=== PATIENT | female | born 1975 | race Caucasian/White ===

== ENCOUNTER 2024-06-26 17:54 | Inpatient (IN) | payer OTHER, MEDICAID ==
[~2024-06-26] VITALS: Ht 162.6 cm; Wt 89.9 kg
--- NOTE | 2024-06-26 18:05 | ECG ---
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
--- NOTE | 2024-06-26 18:43 | ED.PDOC ---
History of Present Illness HPI Comments 49-year-old female who comes in with chief complaint of palpitations. The patient states that she was at home and approximately 30 minutes prior to arrival the patient was checked her heart rate and it was beating somewhat rapidly. The patient then noticed that her walk said that her heart rate was around 180. She does have a history of SVT with previous ablation. The patient states that she is not having any chest pain or shortness for breath. There has been no vomiting or diarrhea. For the paramedics arrived on scene, the patient had an EKG which showed sinus tachycardia at a rate of 130 with PACs. The patient took some Cardizem prior to arrival to the emergency department's. She states that she takes that once a day. She also states that it has not been working over the past several days. EN route, the patient had an oxygen saturation of 96% on room air with a normal blood pressure. Chief Complaint: Palpitations Time Seen by MD: 17:56 Primary Care Provider: DELICIA Brwone Notes: Nurses Notes, Medications, Allergies Allergies: Coded Allergies: NO KNOWN ALLERGIES (Unverified , 06/26/24) Information Source: Patient, Relative, Emergency Med Personnel Mode of Arrival: EMS Severity: Moderate Duration: Since onset Prehospital treatment: Ingredient Handler, IVF Associated signs and symptoms Palpitations Past Medical History Past Medical History (Other): Previous history of SVT with PACs and PVCs Surgical History (Other): Previous ablation PUBLISHING DIRECTOR History: No Pertinent PUBLISHING DIRECTOR History Family History Family History: No family hx of Cancer, No family hx of DM, No family hx of Heart kashmir, No family hx of HTN Social History Smoker: Non-Smoker Alcohol: Occasionally Drugs: Denies Drug Use Lives In: Home Constitutional: denies: chills, diaphoresis, fatigue, fever, malaise, sweats, weakness, others EENTM: denies: blurred vision, double vision, ear bleeding, ear discharge, ear drainage, ear pain, ear ringing, eye pain, eye redness, hearing loss, mouth pain, mouth swelling, nasal discharge, nose bleeding, nose congestion, nose pain, photophobia, tearing, throat pain, throat swelling, voice changes, others Respiratory: reports: shortness of breath; denies: cough, hemoptysis, orthopnea, SOB at rest, SOB with excertion, stridor, wheezing, others Cardiovascular: reports: palpitations; denies: chest pain, dizzy spells, diaphoresis, Dyspnea on exertion, edema, irregular heart beat, left arm pain, lightheadedness, PND, syncope, others Gastrointestinal: denies: abdomen distended, abdominal pain, blood streaked bowels, constipated, diarrhea, dysphagia, difficulty swallowing, hematemesis, melena, nausea, poor appetite, poor fluid intake, rectal bleeding, rectal pain, vomiting, others Genitourinary: denies: abnormal vagina bleeding, burning, dyspareunia, dysuria, flank pain, frequency, hematuria, incontinence, pain, , vagina discharge, urgency, others Neurological: denies: dizziness, fainting, headache, left sided numbness, left sided weakness, numbness, paresthesia, pre-existing deficit, right sided numbness, right sided weakness, seizure, speech problems, tingling, tremors, weakness, others Musculoskeletal: denies: back pain, gout, joint pain, joint swelling, muscle pain, muscle stiffness, neck pain, others Integumetry: denies: bruises, change in color, change in hair/nails, dryness, laceration, lesions, lumps, rash, wounds, others Allergic/Immunocompromised: denies: Difficulty Healing, Frequent Infections, Hives, Itching, others Hematologic/Lymphatic: denies: anemia, blood clots, easy bleeding, easy bruising, swollen glands, others Endocrine: denies: excessive hunger, excessive sweating, excessive thirst, excessive urination, flushing, intolerance to cold, intolerance to heat, unexplained weight gain, unexplained weight loss, others Psychiatric: denies: anxiety, bipolar disorder, depression, hopeless, panic disorder, schizophrenia, sleepless, suicidal, others Physical Exam General Appearance: Moderate Distress HEENT: Normal ENT Inspection, Pharynx Normal, TMs Normal Neck: Full Range of Motion, Non-Tender, Normal, Normal Inspection Respiratory: Chest Non-Tender, Lungs Clear, No Accessory Muscle Use, No Respiratory Distress, Normal Breath Sounds Cardiovascular: No Edema, No JVD, No Murmur, No Gallop, Tachycardia Breast Exam: Deferred Gastrointestinal: No Organomegaly, Non Tender, No Pulsatile Mass, Normal Bowel Sounds, Soft Genitalia: Deferred Pelvic: Deferred Rectal: Deferred Extremities: No calf tenderness, Normal capillary refill, Normal inspection, Normal range of motion, Non-tender, No pedal edema Musculoskeletal : Apperance: Normal Neurologic: Alert, 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 Was a procedure done?: No EKG EKG : Pulse Rate (adult): 112 [place]: Normal Cardiac Rhythm: ST Block: None ST: Nonsp Differential Dx Considerations may include: Dehydration, generalized weakness, electrolyte imbalance X-Ray, Labs, Meds, VS Vital Signs Date Time Temp Pulse Resp B/P (MAP) Pulse Ox O2 Delivery O2 Flow Rate FiO2 06/26/24 20:00 77 12 97/70 (79) 96 06/26/24 20:00 69 06/26/24 19:28 97.6 75 17 121/63 (82) 100 97.6 06/26/24 19:28 76 12 100 Room Air* 0 21 06/26/24 19:13 82 06/26/24 18:57 90 15 99 Room Air* 0 21 06/26/24 18:56 98.2 90 15 115/69 (84) 99 98.2 06/26/24 18:10 99.7 106 16 136/95 (109) 98 99.7 06/26/24 18:04 96 Lab Test 06/26/24 19:55 06/26/24 19:05 Range/Units Troponin I High Sensitivity 10 9 </=34 ng/L White Blood Count 8.3 4.4-10.8 10^3/uL Red Blood Count 4.86 4.0-5.20 10^6/uL Hemoglobin 14.1 12.2-16.2 g/dL Hematocrit 42.2 36.0-46.0 % Mean Corpuscular Volume 86.8 80.0-100.0 fL Mean Corpuscular Hemoglobin 29.1 28.0-32.0 pg Mean Corpuscular Hemoglobin Concent 33.5 32.0-36.0 g/dL Red Cell Distribution Width 14.1 11.8-14.3 % Platelet Count 273 140-450 10^3/uL Mean Platelet Volume 7.0 6.9-10.8 fL Neutrophils (%) (Auto) 74.5 37.0-80.0 % Lymphocytes (%) (Auto) 16.7 10.0-50.0 % Monocytes (%) (Auto) 7.2 0.0-12.0 % Eosinophils (%) (Auto) 1.1 0.0-7.0 % Basophils (%) (Auto) 0.5 0.0-2.0 % Neutrophils # (Auto) 6.2 1.6-8.6 10 ^3/uL Lymphocytes # (Auto) 1.4 0.4-5.4 10 ^3/uL Monocytes # (Auto) 0.6 0-1.3 10 ^3/uL Eosinophils # (Auto) 0.1 0-0.8 10 ^3/uL Basophils # (Auto) 0 0-0.2 10 ^3/uL Nucleated Red Blood Cells 0.0 % D-Dimer, Quantitative 0.31 0.0-0.49 mg/L FEU Sodium Level 141 136-145 mmol/L Potassium Level 3.8 3.5-5.1 mmol/L Chloride Level 106 98-107 mmol/L Carbon Dioxide Level 25 20-31 mmol/L Anion Gap 10 5-15 Blood Urea Nitrogen 17 9-23 mg/dL Creatinine 0.99 0.550-1.02 mg/dL Glomerular Filtration Rate Calc 70 >90 mL/min BUN/Creatinine Ratio 17.2 10.0-20.0 Serum Glucose 105 74-106 mg/dL Calcium Level 10.4 8.7-10.4 mg/dL Magnesium Level 2.0 1.6-2.6 mg/dL CHEST RADIOGRAPH IMPRESSION: No evidence of acute disease. The patient's CBC and chemistry panel is within normal limits The patient's troponin level x2 is negative The D-dimer is negative At this time, the patient's heart rate has come down in the 70s to 80s There is a concern that the patient has been having episodes of tachycardia despite being on Cardizem and the previous ablation We did contact [facility] and they are going to have the patient transferred to their facility. The patient is authorization #[id number] We are discussing the case with the patient's family as well as the patient Images Reviewed?: Images reviewed and evaluated by me Time of 1ST Reevaluation: 21:21 Reevaluation 1ST: Unchanged Patient Education/Counseling: Diagnosis, Treatment, Prognosis Family Education/Counseling: No Family Present Departure 1 Departure Time of Disposition: 21:26 Impression: Primary Impression: Tachyarrhythmia Disposition: 51 HOSPICE/MEDICAL FACILITY Condition: Fair Critical Care Note Critical Care Time?: Yes (35 min-critical care time only) Stability Stability form required: Yes Stable for transfer: Intended for transfer (Health plan request transfer), To designated facility Heart Score Heart Score: Heart Score Response (Comments) Value History Moderate Suspicious 1 EKG Normal 0 Age 45-64 1 Risk Factors 1 or 2 risk factors 1 Troponin Normal limit 0 Total 3 I personally scribed for INDU ADAIR MD ([email or web address]) on 06/26/24 at 19:27. Electronically submitted by Yelitza Guillaume ([facility]). INDU ADAIR MD Jun 26, 2024 18:43
--- NOTE | 2024-06-26 18:44 | DVH ---
CHEST RADIOGRAPH Indication: Palpitations Technique: Frontal and lateral view of the chest was obtained Comparison: None FINDINGS: Lines and Tubes: None Lungs: Clear Pleura: No effusion. No pneumothorax. Cardiomediastinal contours: Unremarkable Bones: Unremarkable IMPRESSION: No evidence of acute disease.
[2024-06-26 18:57] VITALS: PULSE 90; RESP 15; O2SAT 99
[2024-06-26 19:18] LABS: Basophils # (auto) 0 10 ^3/uL (0-0.2); Basophils % (auto) 0.5 % (0.0-2.0); Eosinophils # (auto) 0.1 10 ^3/uL (0-0.8); Eosinophils % (auto) 1.1 % (0.0-7.0); Hematocrit 42.2 % (36.0-46.0); Hemoglobin 14.1 g/dL (12.2-16.2); Lymphocytes # (auto) 1.4 10 ^3/uL (0.4-5.4); Lymphocytes % (auto) 16.7 % (10.0-50.0); Mean Corpuscular Hemoglobin 29.1 pg (28.0-32.0); Mean Corpuscular Hgb Conc. 33.5 g/dL (32.0-36.0); Mean Corpuscular Volume 86.8 fL (80.0-100.0); Monocytes # (auto) 0.6 10 ^3/uL (0-1.3); Monocytes % (auto) 7.2 % (0.0-12.0); Neutrophils # (auto) 6.2 10 ^3/uL (1.6-8.6); Neutrophils % (auto) 74.5 % (37.0-80.0); Platelet Count (auto) 273 10^3/uL (140-450); Red Blood Cells 4.86 10^6/uL (4.0-5.20); Red Cell Distribution Width 14.1 % (11.8-14.3); White Blood Cell 8.3 10^3/uL (4.4-10.8)
[2024-06-26 19:28] VITALS: PULSE 76; RESP 12; O2SAT 100
[2024-06-26 19:30] LABS: Chloride 106 mmol/L (98-107); Potassium 3.8 mmol/L (3.5-5.1); Sodium 141 mmol/L (136-145)
[2024-06-26 19:31] LABS: Anion Gap 10 (5-15); Carbon Dioxide 25 mmol/L (20-31)
[2024-06-26 19:36] LABS: BUN/Creatinine Ratio 17.2 (10.0-20.0); Blood Urea Nitrogen 17 mg/dL (9-23); Glucose 105 mg/dL (74-106)
[2024-06-26 19:42] LABS: Calcium 10.4 mg/dL (8.7-10.4)
--- NOTE | 2024-06-26 19:50 | ECG ---
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
[2024-06-27] VITALS (8 sets, daily range): BP systolic 93–115; BP diastolic 42–69; PULSE 61–76; RESP 12–18; TEMP 97.6–98.2; O2SAT 96–100
--- NOTE | 2024-06-27 05:59 | ED.PDOC ---
Departure 1 Departure Time of Disposition: 05:58 ([place] authorized the patient to be admitted here.Patient's bradycardic and hypotensive. We will give patient is fluids and admit for cardiology evaluation.) Impression: Primary Impression: Tachyarrhythmia Additional Impressions: Bradycardia Generalized weakness Disposition: ADMITTED INPATIENT Admit to: Tele Condition: Guarded SHERIN RENDON MD Jun 27, 2024 05:59
[2024-06-27] MEDS: SODIUM CHLORIDE 0.9% 1,000 ML IV ONE (06:13)
[2024-06-27] MEDS ORDERED: NITROGLYCERIN 0.4 MG SL TAB SL PRN (07:30)
[2024-06-27] MEDS ORDERED: HYDROcodone-ACET 5/325MG TAB PO PRN (07:30)
[2024-06-27] MEDS ORDERED: MORPHINE SULFATE INJ 2 MG/ml SYRG IV PRN (07:30)
[2024-06-27] MEDS ORDERED: ONDANSETRON HCL 4 MG/2 ML VIAL IV PRN (07:30)
[2024-06-27] MEDS ORDERED: DOCUSATE SOD 100 MG CAP PO PRN (07:30)
[2024-06-27] MEDS ORDERED: SODIUM CHLORIDE 0.9% 1,000 ML IV ONE (07:45)
--- NOTE | 2024-06-27 07:54 | DVHHP2 ---
History of Present Illness Reason for Visit: Palpitations History of Present Illness Cathy Barraza, is a 49-year-old female, with past medical history of SVT and cardiac ablation, who came in due to palpitations. Patient states that sense having her ablation her SVT has improved, but she now has frequent PVCs and PACs. She takes Diltiazem at home for this. She states that she will have occasional short runs of SVT or frequent PVCs that she can wait out, rest, put ice on her neck or chest to help stop it. Yesterday, while on a walk with her daughter, she started feeling the palpitations every time she would began to jog. When she would stop her heart rate would improve. On her third attempt her heart rate went to the 180s and did not improve with rest. Cardiovascular: Other (SVT, PVC, Ablation) Past Surgical History: Cholecystectomy, Other (left salpingectomy), Tubal Ligation Smoke: No ALCOHOL: occassional Drugs: None Lives: with Family Domestic Violence: Neg Review of Systems Constitutional: No: Fever, Chills, Sweats, Weakness, Malaise, Other Eyes: No: Pain, Vision change, Conjunctivae inflammation, Eyelid inflammation, Other, Redness ENT: No: Ear pain, Ear discharge, Nose pain, Nose discharge, Nose congestion, Mouth pain, Mouth swelling, Throat pain, Throat swelling, Other Respiratory: SOB with excertion; No: Cough, Dry, Shortness of breath, Wheezing, Hemoptysis, Pleuritic Pain, Sputum, Wheezing, Other Cardiovascular: Chest Pain (pressure), Palpitations; No: Orthopnea, Paroxysmal Noc. Dyspnea, Edema, Lt Headedness, Other Gastrointestinal: No: Nausea, Vomiting, Abdominal Pain, Diarrhea, Constipation, Melena, Hematochezia, Other Genitourinary: No Dysuria, No Frequency, No Incontinence, No Hematuria, No Retention, No Other Musculoskeletal: No: other, neck pain, shoulder pain, arm pain, back pain, hand pain, leg pain, foot pain Skin: No: Rash, Lesions, Jaundice, Bruising, Other Neurological: No: Weakness, Numbness, Incoordination, Change in speech, Confusion, Seizures, Other Allergies: Coded Allergies: NO KNOWN ALLERGIES (Unverified , 06/26/24) Medications Current Medications Medications Dose Ordered Sig/Fercho Route Start Time Stop Time Status Last Admin Dose Admin Sodium Chloride 10 ml Q8HR IV 06/27/24 14:00 UNV Acetaminophen/ Hydrocodone Bitart 1 tab Q4HP PRN PO 06/27/24 07:30 UNV Ondansetron HCl 4 mg Q4HP PRN IV 06/27/24 07:30 UNV Docusate Sodium 100 mg BIDPRN PRN PO 06/27/24 07:30 UNV Acetaminophen 650 mg Q6HP PRN PO 06/27/24 07:30 UNV Nitroglycerin 0.4 mg Q5MINP PRN SL 06/27/24 07:30 UNV Morphine Sulfate 2 mg Q30M PRN IV 06/27/24 07:30 UNV Exam Vital Signs Vital Signs Date Time Temp Pulse Resp B/P (MAP) Pulse Ox O2 Delivery O2 Flow Rate FiO2 06/27/24 07:39 97.8 61 12 96/66 (76) 100 97.8 06/26/24 19:28 Room Air* 0 21 General Appearance: Alert, Oriented X3, Cooperative, mild distress HEENT: Atraumatic, PERRLA, Mucous membr. moist/pink Respiratory: Clear to auscultation, Normal air movement Cardiovascular: Regular rate, Normal S1, Normal S2, No murmurs Abdominal: Normal bowel sounds, Soft, No tenderness, No hepatospenomegaly Extremities: No clubbing, No cyanosis, No edema, Normal pulses, No tenderness/swelling Skin: No rashes, No breakdown, No significant lesion Neuro: Normal gait, Normal speech, Strength at 5/5 X4 ext, Normal tone Psych/Mental Status: Mental status NL, Mood NL Labs/Xrays Labs Test 06/26/24 19:55 06/26/24 19:05 Range/Units Troponin I High Sensitivity 10 </=34 ng/L White Blood Count 8.3 4.4-10.8 10^3/uL Red Blood Count 4.86 4.0-5.20 10^6/uL Hemoglobin 14.1 12.2-16.2 g/dL Hematocrit 42.2 36.0-46.0 % Mean Corpuscular Volume 86.8 80.0-100.0 fL Mean Corpuscular Hemoglobin 29.1 28.0-32.0 pg Mean Corpuscular Hemoglobin Concent 33.5 32.0-36.0 g/dL Red Cell Distribution Width 14.1 11.8-14.3 % Platelet Count 273 140-450 10^3/uL Mean Platelet Volume 7.0 6.9-10.8 fL Neutrophils (%) (Auto) 74.5 37.0-80.0 % Lymphocytes (%) (Auto) 16.7 10.0-50.0 % Monocytes (%) (Auto) 7.2 0.0-12.0 % Eosinophils (%) (Auto) 1.1 0.0-7.0 % Basophils (%) (Auto) 0.5 0.0-2.0 % Neutrophils # (Auto) 6.2 1.6-8.6 10 ^3/uL Lymphocytes # (Auto) 1.4 0.4-5.4 10 ^3/uL Monocytes # (Auto) 0.6 0-1.3 10 ^3/uL Eosinophils # (Auto) 0.1 0-0.8 10 ^3/uL Basophils # (Auto) 0 0-0.2 10 ^3/uL Nucleated Red Blood Cells 0.0 % D-Dimer, Quantitative 0.31 0.0-0.49 mg/L FEU Sodium Level 141 136-145 mmol/L Potassium Level 3.8 3.5-5.1 mmol/L Chloride Level 106 98-107 mmol/L Carbon Dioxide Level 25 20-31 mmol/L Anion Gap 10 5-15 Blood Urea Nitrogen 17 9-23 mg/dL Creatinine 0.99 0.550-1.02 mg/dL Glomerular Filtration Rate Calc 70 >90 mL/min BUN/Creatinine Ratio 17.2 10.0-20.0 Serum Glucose 105 74-106 mg/dL Calcium Level 10.4 8.7-10.4 mg/dL Magnesium Level 2.0 1.6-2.6 mg/dL CHEST RADIOGRAPH FINDINGS: Lines and Tubes: None Lungs: Clear Pleura: No effusion. No pneumothorax. Cardiomediastinal contours: Unremarkable Bones: Unremarkable IMPRESSION: No evidence of acute disease. 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 DESIGNER Procedure Category Date Status Time Admit ADMIT 06/27/24 Transmitted 07:28 Code Status CODE 06/27/24 Transmitted 07:28 2 Gm Sodium Diet DIET 06/27/24 Transmitted Breakfast Sodium Chloride Lock PHA 06/27/24 Logged (Saline Lock Ns) 14:00 Hydrocodone-Acet PHA 06/27/24 Logged 5/325mg Tab ([place] 07:30 Ondansetron Hcl PHA 06/27/24 Logged (Zofran) 07:30 Docusate Sodium PHA 06/27/24 Logged Capsule (Colace 07:30 Complete Blood Count LAB 06/28/24 Verified 04:00 Comprehensive LAB 06/28/24 Verified Metabolic Panel 04:00 Condition: Serious STONE 06/27/24 In Process 07:28 Acetaminophen Tablet [facility] 06/27/24 Logged (Tylenol Tablet) 07:30 Nitroglycerin [facility] 06/27/24 Logged Sublingual (Ntrostat 07:30 Morphine Sulfate PHA 06/27/24 Logged Injection 07:30 Stat Ekg For Chest [facility] 06/27/24 In Process Pain 07:28 Notify Md Of Changes [facility] 06/27/24 In Process From Base 07:28 Polls Or Surveys Interviewer For [facility] 06/27/24 In Process 24 Hours 07:28 Emergency Dysrhythmia [facility] 06/27/24 In Process Protocol 07:28 Rhythm Strips Once [facility] 06/27/24 In Process Every Shift 07:28 Oxygen By Nasal RT 06/27/24 Transmitted Cannula 07:28 Date of Service: Jun 27, 2024 Billing Provider: JO MEEK Common Visit Codes: [id number] INP/OBS CARE (MOD) JO MEEK Jun 27, 2024 07:54
[2024-06-27] MEDS ORDERED: METOPROLOL TARTRATE 25 MG TAB PO SCH (10:00)
--- NOTE | 2024-06-27 11:53 | DVHINCON2 ---
Date Seen: Jun 27, 2024 Referring Physician ANTONIO Hua Reason for Consultation Palpitations, SVT History of Present Illness This is a pleasant 49-year-old female who presented to the emergency room with a chief complaint of palpitations. The patient reports she was exercising including running when she noted her heart rate to be consistently in the 180s bpm prompting her to call 911 given her history of supraventricular tachycardia. Upon EMS arrival she was found in a sinus tachycardia rhythm with a heart rate in the 130s bpm. The patient reports a history of supraventricular tachycardia undergoing DCCV x 3 with subsequent cardiac ablation at [facility] on 2021. The patient also reports undergoing an event monitor for 30 days approximately 1.5 years ago with findings of PVCs and PACs and no further tachyarrhythmias. States she is on Cardizem LA, unknown dosage, but forgets to take it at times. She stopped following up with cardiology after the latest event monitor results. She has undergone multiple 12 lead electrocardiograms x2 revealing a normal sinus rhythm. Serial troponin levels are negative. Denies the intake of caffeinated or energy drinks. States she is well-hydrated. Denies any other significant medical history. Past Medical History Past medical history reviewed. No other significant than mentioned above. Past Surgical History Cardiac ablation, 2021 Cholecystectomy Left salpingectomy BTL Family History Family history reviewed. Not significant for cardiovascular disease. Social History Denies the use of illicit drugs, alcohol, or tobacco use. Allergies: Coded Allergies: NO KNOWN ALLERGIES (Unverified , 06/26/24) Home Meds Home medications reviewed. Current Medications Current Medications Medications (Trade) Dose Ordered Sig/Fercho Route PRN Reason Start Time Stop Time Status Last Admin Sodium Chloride (Saline Lock Ns) 10 ml Q8HR IV 06/27/24 14:00 Acetaminophen/ Hydrocodone Bitart ([place] 5/325MG Tab) 1 tab Q4HP PRN PO MODERATE PAIN (4-6 PAIN SCALE) 06/27/24 07:30 Ondansetron HCl (Zofran) 4 mg Q4HP PRN IV NAUSEA / VOMITING 06/27/24 07:30 Docusate Sodium (Colace Capsule) 100 mg BIDPRN PRN PO FOR CONSTIPATION 06/27/24 07:30 Acetaminophen (Tylenol Tablet) 650 mg Q6HP PRN PO PAIN SCALE 1-3 OR TEMP>100.4 06/27/24 07:30 Nitroglycerin (Ntrostat Sublingual) 0.4 mg Q5MINP PRN SL FOR CHEST PAIN 06/27/24 07:30 Morphine Sulfate 2 mg Q30M PRN IV FOR CHEST PAIN 06/27/24 07:30 Metoprolol Tartrate (Lopressor Tablet) 12.5 mg BID PO 06/27/24 10:00 Review of Systems Constitutional: No symptom reported Ears, Nose, & Throat: No symptom reported Eyes: No symptom reported Neurological: No symptoms reported Pulmonary/Respiratory: No symptom reported Cardiovascular: Palpitations Gastrointestinal: No symptom reported Genitourinary: No symptom reported Musculoskeletal: No symptom reported Skin: No symptom reported Psychiatric: No symptom reported Endocrine: No symptom reported Hemotologic/Lymphatic: No symptom reported Vital Signs Vital Signs Date Time Temp Pulse Resp B/P (MAP) Pulse Ox O2 Delivery O2 Flow Rate FiO2 06/27/24 08:10 97.6 72 18 104/42 (62) 98 97.6 06/27/24 07:30 Room Air* 0 21 Physical Exam General Appearance: Cooperative. Well developed. Well nourished. In no acute distress Head Exam: Normal inspection Neck Exam: Normal inspection. Non-tender. Normal alignment Pulmonary/Respiratory: Chest non-tender. Clear bilateral breath sounds Cardiovascular/Chest: Regular rate and rhythm. S1, S2. NSR. No murmurs. No JVD. Peripheral Pulses: 2+ Radial (R). 2+ Radial (L). 2+ Pedal (R). 2+ Pedal (L) Abdominal Exam: Normal bowel sounds. Soft. Nontender. No hepatospenomegaly. N o masses Ankle Exam: Negative ankle edema Lower extremities: Negative lower extremity edema Neuro/Mental Status: A&O x4. Coherent Thoughts/Psych: Normal thought pattern. Appropriate mood and affect. Good judgement and insight Appearance: In no acute distress Skin Exam: Normal inspection. Normal color. Warm. Dry Labs/Diagnostic Data Labs Test 06/26/24 19:55 06/26/24 19:05 Range/Units Troponin I High Sensitivity 10 </=34 ng/L White Blood Count 8.3 4.4-10.8 10^3/uL Red Blood Count 4.86 4.0-5.20 10^6/uL Hemoglobin 14.1 12.2-16.2 g/dL Hematocrit 42.2 36.0-46.0 % Mean Corpuscular Volume 86.8 80.0-100.0 fL Mean Corpuscular Hemoglobin 29.1 28.0-32.0 pg Mean Corpuscular Hemoglobin Concent 33.5 32.0-36.0 g/dL Red Cell Distribution Width 14.1 11.8-14.3 % Platelet Count 273 140-450 10^3/uL Mean Platelet Volume 7.0 6.9-10.8 fL Neutrophils (%) (Auto) 74.5 37.0-80.0 % Lymphocytes (%) (Auto) 16.7 10.0-50.0 % Monocytes (%) (Auto) 7.2 0.0-12.0 % Eosinophils (%) (Auto) 1.1 0.0-7.0 % Basophils (%) (Auto) 0.5 0.0-2.0 % Neutrophils # (Auto) 6.2 1.6-8.6 10 ^3/uL Lymphocytes # (Auto) 1.4 0.4-5.4 10 ^3/uL Monocytes # (Auto) 0.6 0-1.3 10 ^3/uL Eosinophils # (Auto) 0.1 0-0.8 10 ^3/uL Basophils # (Auto) 0 0-0.2 10 ^3/uL Nucleated Red Blood Cells 0.0 % D-Dimer, Quantitative 0.31 0.0-0.49 mg/L FEU Sodium Level 141 136-145 mmol/L Potassium Level 3.8 3.5-5.1 mmol/L Chloride Level 106 98-107 mmol/L Carbon Dioxide Level 25 20-31 mmol/L Anion Gap 10 5-15 Blood Urea Nitrogen 17 9-23 mg/dL Creatinine 0.99 0.550-1.02 mg/dL Glomerular Filtration Rate Calc 70 >90 mL/min BUN/Creatinine Ratio 17.2 10.0-20.0 Serum Glucose 105 74-106 mg/dL Calcium Level 10.4 8.7-10.4 mg/dL Magnesium Level 2.0 1.6-2.6 mg/dL Assessment Palpitations rule out tachyarrhythmias Rule out structural heart disease Hx of SVT with DCCV x 3 and subsequent ablation in 2021 Poor medical compliance Plan/Recommendation (Dr. Bustillo) No cardiac arrhythmias have been identified during admission. The patient has been scheduled for a transthoracic echocardiogram to evaluate cardiac function. In the meantime, initiate Cardizem and magnesium therapy and check TSH level. The patient was strongly advised to continue medical compliance with Cardizem at home. She can also benefit from an outpatient event monitor and follow-up with Cardiology. Notify Cardiology in the setting of tachyarrhythmias. In the setting of an unremarkable echocardiogram, there is no further cardiac workup indicated at this time. Thank you for allowing us to participate in this patient's care. Please call if you have any questions or concerns. This medical document was created using an electronic medical record system with voice recognition software and computerized dictation system. Although this document has been carefully reviewed, there might still be some phonetic and typographical errors. Occasional wrong-word or ``sound-alike substitutions may have occurred due to the inherent limitations of voice recognition software. These areas are purely typographical due to imperfections of the software programs and do not reflect any compromise in the patient's medical care. Please read the chart carefully and recognize, using context, where these substitutions have occurred. Plan discussed with: Patient, Other NYHA Physical activity limitations: NA Date of Service: Jun 27, 2024 Billing Provider: MYRON MCCURDY Cardiology Common Codes: [id number] INP/OBS CARE (High) MYRON MCCURDY Jun 27, 2024 11:53
[2024-06-27] MEDS: MAGNESIUM OXIDE 400 MG TAB PO ONE (13:10)
[2024-06-27] MEDS: dilTIAZem 120MG ER CAP PO ONE (13:13)
[2024-06-27] MEDS: SODIUM CHLOR 0.9% PF (SALINE LOCK) 10ML VIAL/SYR IV SCH (19:59)
[2024-06-28 01:00] VITALS: BP 100/63; PULSE 53; RESP 17; TEMP 98; O2SAT 98
[2024-06-28 05:00] VITALS: BP 99/54; PULSE 54; RESP 16; TEMP 97.9; O2SAT 98
[2024-06-28 06:40] LABS: Urine Bacteria None Seen /hpf (None Seen)
[2024-06-28] MEDS: ACETAMINOPHEN 325 MG TAB PO PRN (06:45)
[2024-06-28 06:46] LABS: Basophils # (auto) 0 10 ^3/uL (0-0.2); Basophils % (auto) 0.5 % (0.0-2.0); Eosinophils # (auto) 0.3 10 ^3/uL (0-0.8); Eosinophils % (auto) 4.3 % (0.0-7.0); Hematocrit 42.4 % (36.0-46.0); Hemoglobin 14.2 g/dL (12.2-16.2); Lymphocytes # (auto) 2.1 10 ^3/uL (0.4-5.4); Lymphocytes % (auto) 34.2 % (10.0-50.0); Mean Corpuscular Hemoglobin 29.3 pg (28.0-32.0); Mean Corpuscular Hgb Conc. 33.4 g/dL (32.0-36.0); Mean Corpuscular Volume 87.7 fL (80.0-100.0); Monocytes # (auto) 0.6 10 ^3/uL (0-1.3); Monocytes % (auto) 9.1 % (0.0-12.0); Neutrophils # (auto) 3.2 10 ^3/uL (1.6-8.6); Neutrophils % (auto) 51.9 % (37.0-80.0); Nucleated Red Blood Cells % 0.2 %; Platelet Count (auto) 259 10^3/uL (140-450); Red Blood Cells 4.84 10^6/uL (4.0-5.20); Red Cell Distribution Width 14.2 % (11.8-14.3); White Blood Cell 6.1 10^3/uL (4.4-10.8)
[2024-06-28 07:01] LABS: Alanine Aminotransferase 20 U/L (7-40); Albumin 4.2 g/dL (3.2-4.8); Alkaline Phosphatase 63 U/L (46-116); Anion Gap 10 (5-15); Aspartate Aminotransferase 15 U/L (13-40); BUN/Creatinine Ratio 17.3 (10.0-20.0); Bilirubin, Total 0.5 mg/dL (0.2-1.0); Blood Urea Nitrogen 14 mg/dL (9-23); Calcium 9.5 mg/dL (8.7-10.4); Carbon Dioxide 23 mmol/L (20-31); Chloride 107 mmol/L (98-107); Potassium 4.1 mmol/L (3.5-5.1); Sodium 140 mmol/L (136-145)
[2024-06-28 07:02] LABS: Glucose 115 mg/dL (74-106)
[2024-06-28 07:04] LABS: Urine Blood TRACE /uL (Negative); Urine Clarity Clear (Clear); Urine Color Colorless (Yellow); Urine Protein, UAD Negative (Negative); Urine Specific Gravity 1.006 (1.001-1.035); Urine Squamous Epithelial Cell FEW /hpf (<5); Urine Urobilinogen Normal (Negative); Urine WBC < 1 /HPF (0-5); Urine pH 5.5 (5.0-9.0)
[2024-06-28 08:00] VITALS: PULSE 47
[2024-06-28 08:10] VITALS: PULSE 53; RESP 16; O2SAT 98
[2024-06-28 09:30] VITALS: BP 98/65; PULSE 53; RESP 16; TEMP 97.8; O2SAT 98
[2024-06-28] MEDS: MAGNESIUM OXIDE 400 MG TAB PO SCH (09:47)
[2024-06-28] MEDS: dilTIAZem 120MG ER CAP PO SCH (09:47)
--- NOTE | 2024-06-28 09:48 | DVHPN2 ---
Consult Progress Note Date Seen: Jun 28, 2024 Subjective Review of Systems: CVS:Normal, RESPIRATORY:Normal, NEURO:Normal Objective vital signs Vital Sign Date Time Temp Pulse Resp B/P (MAP) Pulse Ox O2 Delivery O2 Flow Rate FiO2 06/28/24 05:00 97.9 54 16 99/54 (69) 98 97.9 06/27/24 20:00 Room Air* 0 21 Total Intake and Output 06/27/24 06/27/24 06/28/24 15:00 23:00 07:00 Intake Total 1000 ml 200 ml 150 ml Balance 1000 ml 200 ml 150 ml medications Current Medications Medications Dose Ordered Sig/Fercho Route Start Time Stop Time Status Last Admin Dose Admin Sodium Chloride 10 ml Q8HR IV 06/27/24 14:00 06/28/24 06:30 10 ML Acetaminophen/ Hydrocodone Bitart 1 tab Q4HP PRN PO 06/27/24 07:30 Ondansetron HCl 4 mg Q4HP PRN IV 06/27/24 07:30 Docusate Sodium 100 mg BIDPRN PRN PO 06/27/24 07:30 Acetaminophen 650 mg Q6HP PRN PO 06/27/24 07:30 06/28/24 06:45 650 MG Nitroglycerin 0.4 mg Q5MINP PRN SL 06/27/24 07:30 Morphine Sulfate 2 mg Q30M PRN IV 06/27/24 07:30 Diltiazem HCl 120 mg DAILY PO 06/28/24 10:00 Magnesium Oxide 400 mg DAILY PO 06/28/24 10:00 Examination: LUNGS:Normal, CVS:Normal (Sinus bradycardic events on quality assurance monitor final), NEURO:Normal laboratory and microbiology Laboratory Tests 06/28/24 05:31 Test 06/28/24 05:31 Range/Units Serum Glucose 115 H 74-106 mg/dL Problem List/Assessment/Plan Problem List/Assessment/Plan Palpitations rule out tachyarrhythmias Rule out structural heart disease Hx of SVT with DCCV x 3 and subsequent ablation in 2021 Poor medical compliance Plan/Recommendation (Dr. Bustillo) No cardiac arrhythmias have been identified during admission. shelter monitor reviewed revealing sinus bradycardia at rest. Continue Cardizem and magnesium therapy. In the setting of an unremarkable echocardiogram, there is no further cardiac workup indicated at this time. Strongly advised to continue medical compliance with Cardizem at home. She can also benefit from an outpatient event monitor and follow-up with Cardiology. Thank you for allowing us to participate in this patient's care. Please call if you have any questions or concerns. This medical document was created using an electronic medical record system with voice recognition software and computerized dictation system. Although this document has been carefully reviewed, there might still be some phonetic and typographical errors. Occasional wrong-word or ``sound-alike substitutions may have occurred due to the inherent limitations of voice recognition software. These areas are purely typographical due to imperfections of the software programs and do not reflect any compromise in the patient's medical care. Please read the chart carefully and recognize, using context, where these substitutions have occurred. Plan discussed with: Patient, Other Date of Service: Jun 28, 2024 Billing Provider: MYRON MCCURDY Cardiology Common Codes: [id number] INP/OBS CARE(Mod) MYRON MCCURDY Jun 28, 2024 09:48
--- NOTE | 2024-06-28 10:53 | DVHDS2 ---
Discharge Summary Date of Admission Jun 27, 2024 at 07:28 Date of Discharge: Jun 28, 2024 Admitting Diagnosis Tachyarrhythmia Labs/Diagnostic Data: Laboratory Results Test 06/28/24 06:00 06/28/24 05:31 06/27/24 12:36 06/26/24 19:55 Urine Color Colorless (Yellow) Urine Clarity Clear (Clear) Urine pH 5.5 (5.0-9.0) Urine Specific [place] 1.006 (1.001-1.035) Urine Protein Negative (Negative) Urine Ketones Negative (Negative) Urine Blood Trace /uL (Negative) Urine Nitrite Negative (Negative) Urine Bilirubin Negative (Negative) Urine Urobilinogen Normal mg/dL (Negative) Urine Leukocyte Esterase Negative /uL (Negative) Urine RBC <1 /hpf (0 - 4) Urine Microscopic WBC < 1 /HPF (0-5) Urine Squamous Epithelial Cells Few /hpf (<5) Urine Bacteria None seen /hpf (None Seen) Urine Glucose Normal mg/dL (Normal) White Blood Count 6.1 10^3/uL (4.4-10.8) Red Blood Count 4.84 10^6/uL (4.0-5.20) Hemoglobin 14.2 g/dL (12.2-16.2) Hematocrit 42.4 % (36.0-46.0) Mean Corpuscular Volume 87.7 fL (80.0-100.0) Mean Corpuscular Hemoglobin 29.3 pg (28.0-32.0) Mean Corpuscular Hemoglobin Concent 33.4 g/dL (32.0-36.0) Red Cell Distribution Width 14.2 % (11.8-14.3) Platelet Count 259 10^3/uL (140-450) Mean Platelet Volume 7.4 fL (6.9-10.8) Neutrophils (%) (Auto) 51.9 % (37.0-80.0) Lymphocytes (%) (Auto) 34.2 % (10.0-50.0) Monocytes (%) (Auto) 9.1 % (0.0-12.0) Eosinophils (%) (Auto) 4.3 % (0.0-7.0) Basophils (%) (Auto) 0.5 % (0.0-2.0) Neutrophils # (Auto) 3.2 10 ^3/uL (1.6-8.6) Lymphocytes # (Auto) 2.1 10 ^3/uL (0.4-5.4) Monocytes # (Auto) 0.6 10 ^3/uL (0-1.3) Eosinophils # (Auto) 0.3 10 ^3/uL (0-0.8) Basophils # (Auto) 0 10 ^3/uL (0-0.2) Nucleated Red Blood Cells 0.2 % Sodium Level 140 mmol/L (136-145) Potassium Level 4.1 mmol/L (3.5-5.1) Chloride Level 107 mmol/L (98-107) Carbon Dioxide Level 23 mmol/L (20-31) Anion Gap 10 (5-15) Blood Urea Nitrogen 14 mg/dL (9-23) Creatinine 0.81 mg/dL (0.550-1.02) Glomerular Filtration Rate Calc 89 mL/min (>90) BUN/Creatinine Ratio 17.3 (10.0-20.0) Serum Glucose 115 mg/dL (74-106) Calcium Level 9.5 mg/dL (8.7-10.4) Total Bilirubin 0.5 mg/dL (0.2-1.0) Aspartate Amino Transferase (AST) 15 U/L (13-40) Alanine Aminotransferase (ALT) 20 U/L (7-40) Alkaline Phosphatase 63 U/L (46-116) Total Protein 7.0 g/dL (5.7-8.2) Albumin 4.2 g/dL (3.2-4.8) Thyroid Stimulating Hormone (TSH) 0.50 uIU/mL (0.55-4.78) Troponin I High Sensitivity 10 ng/L (</=34) Test 06/26/24 19:05 D-Dimer, Quantitative 0.31 mg/L FEU (0.0-0.49) Magnesium Level 2.0 mg/dL (1.6-2.6) Other Laboratory Tests 06/28/24 05:31 Brief Hx & Hospital Course: History of Present Illness Cathy Barraza, is a 49-year-old female, with past medical history of SVT and cardiac ablation, who came in due to palpitations. Patient states that sense having her ablation her SVT has improved, but she now has frequent PVCs and PACs. She takes Diltiazem at home for this. She states that she will have occasional short runs of SVT or frequent PVCs that she can wait out, rest, put ice on her neck or chest to help stop it. Yesterday, while on a walk with her daughter, she started feeling the palpitations every time she would began to jog. When she would stop her heart rate would improve. On her third attempt her heart rate went to the 180s and did not improve with rest. Course of hospitalization: Further discussion with the patient reveals that she had SVT ablation approximately three years ago. The patient has been recently she was noticing palpitations, for which she was placed on Cardizem XL by her isotope technologist. The patient was states that she does not take this medication consistently, which was more infrequent as of the last 1-2 weeks. August overnight, the patient was noted to have sinus bradycardia without any noted runs of PVCs, PACs, or SVT. Discussion was made with the patient regarding plan of care which includes being discharged home and continue home medications with compliance with her Cardizem. Patient was agreeable this discharge plan. She will follow up with the isotope technologist for further workup. All questions answered. Physical examination General: Alert and Oriented x3. No acute distress. Well-nourished. Obese Eyes: EOMI. Anicteric. HENT: Moist mucous membranes. Lungs: Clear to auscultation bilaterally. No accessory muscle use. Cardiovascular: Regular rate and rhythm. No murmur. No JVD. Abdomen: Soft, non-tender and non-distended. No palpable masses. Extremities: No edema. Non-tender. Skin: No rashes or lesions. Warm. Neurologic: No focal neurological deficits. CN II-XII grossly intact, but not individually tested. Psychiatric: Cooperative. Appropriate mood and affect. Total time spent with patient discussing and formulating plan of care: 35 minutes. This medical document was created using an electronic medical record system with [employer] system. Although this document has been carefully reviewed, there may still be some phonetic and typographical errors. These areas are purely typographical due to imperfections of the software programs, and do not reflect any compromise in the patient's medical care. Consults/Reason for consult Cardiology: Tachyarrhythmia Condition at Discharge: Fair Final Diagnosis/Problems List Paroxysmal SVT Secreted diagnosis: Obesity Discharge Disposition: Home Discharge Instruct/Medications Diet: Regular Activity: No Restrictions, As Tolerated Follow Up/Referral: Follow up with primary isotope technologist once discharge Medications: Continue home medications including Cardizem XL 120 mg p.o. daily 36 Discharge Statement: "Patient was advised to return to the ER or call 911 if any headaches, dizziness, shortness of breath, chest pain, abdominal pain, bleeding, fevers, or worsening of medical condition. Patient was counseled about treatment plan, medications, possible side effects, patientverbalized understanding. All questions were answered to the best of my ability. This discharge took greater then 30 minutes in planning, reviewing documentation, counseling the patient, and discussing with other team members." ASSESSMENT ASSESSMENT Assessment Paroxysmal SVT Date of Service: Jun 28, 2024 Billing Provider: NATALY BRADFORD NP Common Visit Codes: 90772-BID/OBS DISCH DAY >30min NATALY BRADFORD NP Jun 28, 2024 10:53
[2024-06-28 11:04] VITALS: BP 98/65; PULSE 53; RESP 16; TEMP 97.8; O2SAT 98
--- NOTE | 2024-06-28 13:51 | DVHSR ---
APPROVED REPORT EXAM: Two-dimensional and M-mode echocardiogram with Doppler and color Doppler. Blood Pressure: 104/42 mmHg INDICATION Palpitations RISK FACTORS Height: 5'4, Weight: 175 DIMENSIONS LVDd4.5 (3.8-5.7cm)LA (2D)4.0 (1.9-4.0cm)Aortic Root3.4 (2.0-3.7cm) LVDs2.9 (2.5-4.0cm)LA (MM) (1.9-4.0cm)Aortic Cusp Exc1.8 (1.5-2.0cm) EF (%) 60.0 (55-70%)Rt. Atrium (1.9-4.0cm)Asc. Aorta2.8 cm IVSd0.8 (0.7-1.1cm)RV (D)4.0 (1.8-2.4cm) PWd0.7 (0.7-1.1cm) Mitral Valve MitralMitral Stenosis E wave0.89m/sMV Mean GR.mmHg A wave0.76m/sMV Peak GR.46mmHg E/A ratio1.22D MVAcm2 DECEL [id number] 1/2 Timems Aortic Valve Aortic ValveAortic Stenosis V11.08m/Jj Mean GR.3mmHg V21.12m/Jj Peak GR.5mmHg LVOT Diameter2.1 (1.8-2.4cm)Doppler AVA3.34cm2 Pulmonic Valve V20.80m/s Tricuspid Valve TR Velocity2.14m/s [id number] Conclusion Sinus rhythm. Left atrial enlargement. Mild aortic root enlargement. Valves are normal. EF of 55% with normal RV function. Dopplers unremarkable. No pericardial effusion masses or vegetations.
== END 2024-06-28 13:07 | disposition home or self-care (01) | DRG 310 ==
LOC: ER 17:54 → EDBD 17:54 → OVERFLOW 06-27 07:28 → TELE-EAST 06-27 13:48
PROVIDERS: ADMIT Nurse Practitioner Acute Care; ATTEND Nurse Practitioner Acute Care
DX: I47.19 Other supraventricular tachycardia (principal); I49.3 Ventricular premature depolarization; E66.9 Obesity, unspecified; Z90.49 Acquired absence of other specified parts of digestive tract; Z68.30 Body mass index [BMI] 30.0-30.9, adult; Z79.899 Other long term (current) drug therapy
CPT/HCPCS: 36415; 71046; 80048; 80053; 81001; 83735; 84443; 84484; 85025; 85379; 93005; 93306; 96360; 99291; G0378